=== PATIENT | female | born 1975 | race Caucasian/White ===

== ENCOUNTER 2018-03-27 18:01 | Emergency (ER) | payer BC, OTHER ==
--- NOTE | 2018-03-27 19:05 | EDPHY ---
H & P Time Seen by Provider: 03/27/18 19:04 HPI/ROS: Chief complaint. Double vision HPI. 42-year-old female presents emergency department with 4 day history of intermittent double vision. It seems to be getting more continuous. However yesterday she had no symptoms in the morning until afternoon and then had double vision. Similar episode today no symptoms through the morning and then at about 230 this afternoon began to experience double vision. Her vision is normal with each eye closed worse. She had shingles around her right eye in January with some nerve pain. She saw echo technician February 19 who cleared her. She feels her right eye has felt strained for 1. No other symptoms ROS 10 systems were reviewed and negative with the exception of the elements mentioned in the history of present illness Past Medical/Surgical History: Shingles Social History: , nonsmoker, no alcohol Smoking Status: Never smoked Physical Exam: General Appearance: Alert pleasant well-developed female mild distress vital signs are stable Eyes: Pupils equal and round no pallor or injection. Extraocular movements appear to be intact and I cannot precipitate double vision with extremes of gaze ENT, Mouth: Mucous membranes are moist. Respiratory: There are no retractions, lungs are clear to auscultation. Cardiovascular: Regular rate and rhythm. Gastrointestinal: Abdomen is soft and nontender, no masses, bowel sounds normal. Neurological: Awake and alert, sensory and motor exams grossly normal. Skin: Warm and dry, no rashes. Musculoskeletal: Neck is supple nontender. Extremities symmetrical, full range of motion. Psychiatric: Patient is oriented X 3, there is no agitation. Constitutional: Initial Vital Signs Temperature (C) 36.5 C 03/27/18 18:04 Heart Rate 88 03/27/18 18:04 Respiratory Rate 16 03/27/18 18:04 Blood Pressure 116/87 H 03/27/18 18:04 O2 Sat (%) 97 03/27/18 18:04 O2 Delivery Mode Room Air Allergies/Adverse Reactions: No Known Allergies Allergy (Unverified 03/27/18 18:03) Home Medications: Medication Instructions Recorded NK [No Known Home Meds] 03/27/18 Medical Decision Making - Diagnostics Imaging Results: Imaging Impressions Brain MRI 03/27/18 19:21 Impression: 1. No evidence of intracranial mass or acute infarct. 2. Right maxillary sinusitis. These findings were discussed with Dr. Santiago by telephone at 8:50 PM on 2017 Procedures: IV normal saline ED Course/Re-evaluation: On re-evaluation patient is stable. She and I discussed imaging and lab results. We discussed treatment plan including criteria for return and importance of follow-up and further evaluation. She expresses understanding and agreement I consulted and discussed the case with Dr. Villanueva for Ophthalmology who feels that we have ruled out conditions that might need treatment tonight. He recommends follow-up in the office and potential neurology referral. Differential Diagnosis: Intermittent double vision with normal workup. I considered MS as well as CVA and intracranial bleed. This could present as symptoms of myasthenia gravis. I cannot demonstrate extraocular palsy. - Data Points Laboratory Results: Laboratory Results 03/27/18 19:35 03/27/18 19:35 03/27/18 03/27/18 03/27/18 19:35 19:35 19:35 WBC 7.53 10^3/uL 10^3/uL (3.80-9.50) RBC 4.77 10^6/uL 10^6/uL (4.18-5.33) Hgb 15.0 g/dL g/dL (12.6-16.3) Hct 43.6 % % (38.0-47.0) MCV 91.4 fL fL (81.5-99.8) MCH 31.4 pg pg (27.9-34.1) MCHC 34.4 g/dL g/dL (32.4-36.7) RDW 11.8 % % (11.5-15.2) Plt Count 273 10^3/uL 10^3/uL (150-400) MPV 10.4 fL fL (8.7-11.7) Neut % (Auto) 52.7 % % (39.3-74.2) Lymph % (Auto) 38.0 % % (15.0-45.0) Rankin % (Auto) 8.4 % % (4.5-13.0) Eos % (Auto) 0.4 % L % (0.6-7.6) Baso % (Auto) 0.4 % % (0.3-1.7) Nucleat RBC Rel Count 0.0 % % (0.0-0.2) Absolute Neuts (auto) 3.97 10^3/uL 10^3/uL (1.70-6.50) Absolute Lymphs (auto) 2.86 10^3/uL 10^3/uL (1.00-3.00) Absolute Monos (auto) 0.63 10^3/uL 10^3/uL (0.30-0.80) Absolute Eos (auto) 0.03 10^3/uL 10^3/uL (0.03-0.40) Absolute Basos (auto) 0.03 10^3/uL 10^3/uL (0.02-0.10) Absolute Nucleated RBC 0.00 10^3/uL 10^3/uL (0-0.01) Immature Gran % 0.1 % % (0.0-1.1) Immature Gran # 0.01 10^3/uL 10^3/uL (0.00-0.10) Sodium 141 mEq/L mEq/L (135-145) Potassium 3.7 mEq/L mEq/L (3.3-5.0) Chloride 105 mEq/L mEq/L (97-110) Carbon Dioxide 25 mEq/l mEq/l (22-31) Anion Gap 11 mEq/L mEq/L (8-16) BUN 8 mg/dL mg/dL (7-23) Creatinine 0.7 mg/dL mg/dL (0.6-1.0) Estimated GFR > 60 Glucose 101 mg/dL H mg/dL (70-100) Calcium 9.5 mg/dL mg/dL (8.5-10.4) Beta HCG, Qual NEGATIVE Medications Given: Discontinued Medications Sodium Chloride (Ns) 1,000 mls @ 0 mls/hr IV EDNOW ONE; Wide Open PRN Reason: Protocol Stop: 03/27/18 19:21 Last Admin: 03/27/18 20:37 Dose: 1,000 mls Departure - Departure Disposition: Home, Routine, Self-Care Clinical Impression: Double vision with both eyes open Condition: Good Instructions: Diplopia (ED) Additional Instructions: Dr. Batista for ophthalmology would like to see you in the office. I am also giving you the name of Neurology for further evaluation. Return for worsening symptoms Referrals: TIKA DE LA GARZA, CAR REPAIRMAN [Primary Care Provider] - As per Instructions TILDEN,TERENCE E [Medical Doctor] - 2-3 days, call for appt. Claudio Gandara MD [Medical Doctor] - 2-3 days, call for appt.
[2018-03-27] MEDS ORDERED: NS 1,000 ML IV ONE (19:20)
[2018-03-27 19:44] LABS: PLATELET COUNT 273 10^3/uL (150-400)
[2018-03-27] MEDS ORDERED: GADOBUTROL 10 ML VIAL IVP ONE (19:57)
[2018-03-27 20:43] VITALS: BP 117/77
== END 2018-03-27 22:03 | disposition home or self-care (01) ==
DX: H53.2 Diplopia (principal)
CPT/HCPCS: A9585